=== PATIENT | male | born 1960 | race African-American/Black ===

== ENCOUNTER 2017-08-25 10:23 | Emergency (ER) | payer MEDICAID ==
[~2017-08-25] VITALS: Ht 182.9 cm; Wt 163.7 kg
[2017-08-25 11:10] LABS: HEMATOCRIT 40.9 % (42.0-52.0); HEMOGLOBIN 13.7 g/dL (14.0-18.0); MEAN CORPUSCULAR HEMOGLOBIN 27.9 pg (28.0-32.0); MEAN CORPUSCULAR VOLUME 83.3 fL (80.0-94.0); PLATELET 202 x1000/uL (130-400); RED BLOOD CELL COUNT 4.91 mill/uL (4.7-6.1); RED CELL DISTRIBUTION WIDTH 15.9 % (11.6-14.6)
[2017-08-25 11:17] LABS: CHLORIDE 107 mEq/L (98-107); PROTHROMBIN TIME 20.9 sec (9.4-11.6)
[2017-08-25 13:32] VITALS: BP 130/78
== END 2017-08-25 13:37 | disposition home or self-care (01) ==
LOC: ER 10:48
DX: K92.2 Gastrointestinal hemorrhage, unspecified (principal)
CPT/HCPCS: 36415; 80048; 85027; 85610; 99284

== ENCOUNTER 2020-01-12 11:34 | Emergency (ER) | payer MEDICAID ==
[~2020-01-12] VITALS: Ht 182.9 cm; Wt 160.0 kg
[2020-01-12] MEDS ORDERED: HYDROCODONE/ACETAMINOPHEN 5/325MG TABLET PO ONE (12:00)
[2020-01-12 13:44] LABS: CLARITY URINE CLEAR (CLEAR); COLOR URINE YELLOW (YELLOW); KETONES URINE NEGATIVE (NEGATIVE); LEUKOCYTE ESTERASE URINE NEGATIVE (NEGATIVE); NITRITE URINE NEGATIVE (NEGATIVE); OCCULT BLOOD URINE NEGATIVE (NEGATIVE); PROTEIN URINE NEGATIVE (NEGATIVE); SPECIFIC GRAVITY URINE 1.019 (1.005-1.030); UROBILINOGEN URINE 0.2 E.U./dL (0.2-1.0)
[2020-01-12 14:19] LABS: BASOPHILS % 0.5 % (0.0-2.0); EOSINOPHILS % 0.5 % (0.0-5.0); HEMATOCRIT. 38.1 % (42.0-52.0); HEMOGLOBIN. 12.8 g/dL (14.0-18.0); MEAN CORPUSCULAR HEMOGLOBIN 27.8 pg (28.0-32.0); MEAN CORPUSCULAR VOLUME 83.2 fL (80.0-94.0); MEAN PLATELET VOLUME 8.3 fl (7.4-10.4); PLATELET 187 x1000/uL (130-400); RED BLOOD CELL COUNT 4.58 mill/uL (4.7-6.1); RED CELL DISTRIBUTION WIDTH 15.8 % (11.6-14.6)
[2020-01-12 14:25] LABS: CHLORIDE 104 mEq/L (98-107)
[2020-01-12 14:29] LABS: INR 1.5; PARTIAL THROMBOPLASTIN TIME 33.3 sec (23.4-31.0); PROTHROMBIN TIME 15.9 sec (9.6-11.0)
[2020-01-12 14:30] VITALS: BP 162/92
== END 2020-01-12 15:13 | disposition home or self-care (01) ==
LOC: ER 11:34
DX: M54.6 Pain in thoracic spine (principal); J45.909 Unspecified asthma, uncomplicated; I10 Essential (primary) hypertension
CPT/HCPCS: 36415; 71045; 80053; 81003; 83880; 84484; 85025; 99284

== ENCOUNTER 2021-05-06 13:39 | Emergency (ER) | payer MEDICAID ==
[~2021-05-06] VITALS: Ht 172.7 cm; Wt 158.0 kg
[2021-05-06 17:37] LABS: BASOPHILS % 0.6 % (0.0-2.0); CLARITY URINE CLEAR (CLEAR); COLOR URINE YELLOW (YELLOW); EOSINOPHILS % 0.7 % (0.0-5.0); HEMATOCRIT. 32.4 % (42.0-52.0); HEMOGLOBIN. 10.9 g/dL (14.0-18.0); KETONES URINE NEGATIVE (NEGATIVE); LEUKOCYTE ESTERASE URINE NEGATIVE (NEGATIVE); LYMPHOCYTES % 18.8 % (20.0-50.0); MEAN CORPUSCULAR HEMOGLOBIN 25.9 pg (28.0-32.0); MEAN PLATELET VOLUME 7.7 fl (7.4-10.4); MONOCYTES % 8.9 % (2.0-8.0); NITRITE URINE NEGATIVE (NEGATIVE); OCCULT BLOOD URINE NEGATIVE (NEGATIVE); PLATELET 183 x1000/uL (130-400); PROTEIN URINE NEGATIVE (NEGATIVE); RED BLOOD CELL COUNT 4.21 mill/uL (4.7-6.1); RED CELL DISTRIBUTION WIDTH 18.7 % (11.6-14.6); SPECIFIC GRAVITY URINE 1.018 (1.005-1.030); UROBILINOGEN URINE 0.2 E.U./dL (0.2-1.0)
[2021-05-06 17:42] LABS: CHLORIDE 105 mEq/L (98-107)
[2021-05-06] MEDS ORDERED: ONDANSETRON 4MG ODT PO ONE (20:15)
[2021-05-06] MEDS ORDERED: ASPIRIN 81MG TABLET PO ONE (20:15)
[2021-05-06] MEDS ORDERED: HYDROCODONE/ACETAMINOPHEN 5/325MG TABLET PO ONE (20:15)
[2021-05-06] MEDS ORDERED: TRAM50TA MT (20:51)
[2021-05-06] MEDS ORDERED: DOXY100T2 MT (20:51)
[2021-05-06 21:39] VITALS: BP 154/92
== END 2021-05-06 21:43 | disposition home or self-care (01) ==
LOC: ER 13:39
DX: I87.2 Venous insufficiency (chronic) (peripheral) (principal); L03.115 Cellulitis of right lower limb; I10 Essential (primary) hypertension; M19.90 Unspecified osteoarthritis, unspecified site; J45.909 Unspecified asthma, uncomplicated
CPT/HCPCS: 36415; 71045; 80053; 81003; 83880; 84484; 85025; 93970; 99285